=== PATIENT | female | born 1940 | race Caucasian/White ===

== ENCOUNTER → 2017-09-27 | Outpatient (CLI) | payer BC ==
--- NOTE | 2017-09-28 14:59 | BD ---
EXAMINATION TYPE: Axial Bone Density DATE OF EXAM: 09/27/2017 COMPARISON: NONE CLINICAL HISTORY: Height: 5 FT 1 1/2 IN Weight: 120 FRAX RISK QUESTIONS: RISK FACTORS HISTORY OF: Surgery to Spine/Hip(right/left)/Wrist (right/left): ZANDER HIP REPLACEMENT When: 2009 AND 2012 Family History of Osteoporosis: YES Active: YES Postmenopausal woman: AGE 55 Take estrogen and/or progesterone medications: TOOK FOR 10 YEARS STOPPED THEM [age] Lost more than 2 inches in height since high school: YES MEDICATIONS: Thyroid Medications: YES Which medication: SYNTHROID How Long: SINCE 2003 Additional Medications: SYNTHROID,CALCIUM, BABY ASPIRIN Additional History: EXAM MEASUREMENTS: Bone mineral densitometry was performed using the [employer]an[employer] System. Bone mineral density as measured about the Lumbar spine is: ----- L1-L4(G/cm2): 1.356 T Score Values are as follows: ----- L2: 1.8 ----- L3: 1.9 ----- L4: 0.7 ----- L1-L4: 1.5 BASELINE Bone mineral density about the L Wrist (g/cm2): 0.561 T Score values are as follows: -----Dist. R+U: -2.5 -----Prox. R+U: -1.3 -----Radius total: -1.9 BASELINE IMPRESSION: Osteoporosis (T Score less than -2.5). There is increased fracture risk and therapy is usually indicated based on age. Re-Screen 1-2 years. NOTE: T-SCORE=SD OF THE YOUNG ADULT MEAN.
== END | disposition home or self-care (01) ==
LOC: RADBDWWP 14:11
PROVIDERS: ATTEND Internal Medicine
DX: M81.0 Age-related osteoporosis without current pathological fracture (principal)
CPT/HCPCS: 77080

== ENCOUNTER 2024-10-02 18:08 | Emergency (ER) | payer MEDICARE, BC ==
--- NOTE | 2024-10-02 18:44 | ED ---
Upper Extremity HPI - General Chief Complaint: Extremity Injury, Upper Stated Complaint: Pain in L arm Time Seen by Provider: 10/02/24 18:37 Source: patient, family, RN notes reviewed Mode of arrival: ambulatory Limitations: no limitations - History of Present Illness Initial Comments: 84-year-old female presenting to the emergency department with her for concerns of a fall. Patient states that she was walking outside when she excellently tripped over a garden hose falling onto her left knee and left elbow. Patient denies hitting her head or loss of conscious at the time of the fall. Patient has pain primarily located over her lateral elbow and states that she is inability to move the elbow due to pain. Last tetanus vaccination was wi thin the last 5 years. Patient denies blood thinner use. Has been able to ambulate on the left leg and is not endorsing pain to the left knee. - Related Data Allergies Allergy/AdvReac Type Severity Reaction Status Date / Time No Known Allergies Allergy Verified 10/02/24 18:35 Review of Systems ROS Statement: Those systems with pertinent positive or pertinent negative responses have been documented in the HPI. ROS Other: All systems not noted in ROS Statement are negative. Past Medical History Past Medical History: CVA/TIA, Thyroid Disorder Past Surgical History: Joint Replacement, Orthopedic Surgery Past Psychological History: No Psychological Hx Reported Smoking Status: Never smoker Past Alcohol Use History: None Reported Past Drug Use History: None Reported General Exam Limitations: no limitations General appearance: alert, in no apparent distress Respiratory exam: Present: normal lung sounds bilaterally. Absent: respiratory distress, wheezes, rales, rhonchi, stridor Cardiovascular Exam: Present: regular rate, normal rhythm, normal heart sounds. Absent: systolic murmur, diastolic murmur, rubs, gallop, clicks GI/Abdominal exam: Present: soft, normal bowel sounds. Absent: distended, tenderness, guarding, rebound, rigid Left Elbow exam: Present: tenderness, swelling, abrasion, effusion. Absent: normal inspection, full ROM Hand Wrist exam: Present: full ROM. Absent: tenderness, swelling Neuro motor exam: Present: wrist extension intact, thumb opposition intact Left Knee exam: Present: tenderness (laceration to knee) Gait: observed and normal Back exam: Present: normal inspection Course Vital Signs 10/02/24 10/02/24 10/02/24 18:25 20:15 21:15 Temperature 97.8 F 98.3 F 97.8 F Pulse Rate 64 65 78 Respiratory 22 20 18 Rate Blood Pressure 176/84 166/69 157/79 O2 Sat by Pulse 98 97 99 Oximetry Procedures - Orthopedic Splinting/Casting Injury #1 Side: left Upper Extremity Injury Location: long arm Upper Extremity Immobilizer: posterior splint, Juan wrap, synthetic pre-padded splint Medical Decision Making - Medical Decision Making Was pt. sent in by a medical professional or institution (, PA, FLORIST DESIGNER, urgent care, hospital, or shelter...) When possible be specific @ -No Did you speak to anyone other than the patient for history (EMS, parent, family, police, friend...)? What history was obtained from this source @ -No Did you review nursing and triage notes (agree or disagree)? Why? @ -I reviewed and agree with nursing and triage notes Were old charts reviewed (outside hosp., previous admission, EMS record, old EK G, old radiological studies, urgent care reports/EKG's, shelter records)? Report findings @ -No old charts were reviewed Differential Diagnosis (chest pain, altered mental status, abdominal pain women, abdominal pain men, vaginal bleeding, weakness, fever, dyspnea, syncope, headache, dizziness, GI bleed, back pain, seizure, CVA, palpatations, mental health, musculoskeletal)? @ -Differential Musculoskeletal Muscular strain, contusion, ligament sprain, fracture, arthritis, septic arthritis, bursitis, cellulitis, muscle spasm, nerve compression, DVT, arterial occlusion, herpes zoster, electrolyte abnormality, tumor.... This is not meant to be in all inclusive list EKG interpreted by me (3pts min.). @ -None X-rays interpreted by me (1pt min.). @ -X-ray of the left elbow reveals a severely comminuted impacted fracture of the distal humerus and large elbow joint effusion with significant surrounding soft tissue edema CT interpreted by me (1pt min.). @ -CT imaging of the left elbow without contrast reveals a severely comminuted distal humerus fracture involving the olecranon fossa, medial lateral epicondyles with evidence of intra-articular extension with a large elbow joint effusion. U/S interpreted by me (1pt. min.). @ -None done What testing was considered but not performed or refused? (CT, X-rays, U/S, labs)? Why? @ -None What meds were considered but not given or refused? Why? @ -None Did you discuss the management of the patient with other professionals (professionals i.e. , PA, FLORIST DESIGNER, lab, RT, psych nurse, bilingual social worker, coverstitch binder, teacher, aviation safety officer, rifle case repairer)? Give summary @ -Dr. Flowers, OA, recommends transfer. Dr. Wade at [facility], was recommend that a CT of the elbow is ordered and patient be placed in a posterior arm splint and a sling and to follow-up tomorrow in office with himself in the afternoon for further evaluation. P Was smoking cessation discussed for >3mins.? @ -No Was critical care preformed (if so, how long)? @ -No Were there social determinants of health that impacted care today? How? (Homelessness, low income, unemployed, alcoholism, drug addiction, transportation, low edu. Level, literacy, decrease access to med. care, nursing home, rehab)? @ -No Was there de-escalation of care discussed even if they declined (Discuss DNR or withdrawal of care, Hospice)? DNR status @ -No What co-morbidities impacted this encounter? (DM, HTN, Smoking, COPD, CAD, Cancer, CVA, ARF, Chemo, Hep., AIDS, mental health diagnosis, sleep apnea, morbid obesity)? @ -None Was patient admitted / discharged? Hospital course, mention meds given and route, prescriptions, significant lab abnormalities, going to OR and other pertinent info. @ -Discharge. 84-year-old female presented emerged part with complaints of a fall. Patient noted to have a left arm skin avulsion. Patient is unable to move elbow due to pain. She is provided with pain medication. X-ray imaging is concerning for a comminuted fracture of the distal humerus. I spoke with Dr. Flowers, who recommends transfer to orthopedic trauma center for further evaluation. I spoke with Dr. Dr. Shant Wade at [facility], was recommend that a CT of the elbow is ordered and patient be placed in a posterior arm splint and a sling and to follow-up tomorrow in office with himself in the afternoon for further evaluation. Patient is placed in a sling and is instructed to follow-up. She is provided with starter pack of Tylenol 3. Case discussed with Dr. Nelson Undiagnosed new problem with uncertain prognosis? @ -No Drug Therapy requiring intensive monitoring for toxicity (Heparin, Nitro, Insulin, Cardizem)? @ -No Were any procedures done? @ -Orthopedic splinting Diagnosis/symptom? @ -Distal humeral fracture Acute, or Chronic, or Acute on Chronic? @ -Acute Uncomplicated (without systemic symptoms) or Complicated (systemic symptoms)? @ -Uncomplicated Side effects of treatment? @ -No Exacerbation, Progression, or Severe Exacerbation? @ -No Poses a threat to life or bodily function? How? (Chest pain, [place], [place], pneumonia, PE, COPD, DKA, ARF, appy, cholecystitis, CVA, Diverticulitis, Homicidal, Suicidal, threat to staff... and all critical care pts) @ -No Disposition Clinical Impression: Humerus fracture Disposition: HOME SELF-CARE Condition: Stable Instructions (If sedation given, give patient instructions): Elbow Fracture (DC) Additional Instructions: Please return to the Emergency Department if symptoms worsen or any other concerns. Please contact Dr. Shant Wade's office at: first thing in the morning to schedule follow-up appointment. Keep splint and sling in place until follow-up. Is patient prescribed a controlled substance at d/c from ED?: No Referrals: Dirk Kathleen MD [Primary Care Provider] - 1-2 days Time of Disposition: 20:57
--- NOTE | 2024-10-02 19:23 | XR ---
EXAMINATION TYPE: XR elbow complete LT DATE OF EXAM: 10/02/2024 7:11 PM COMPARISON: None CLINICAL INDICATION: Female, 84 years old with history of fall, pain, laceration; PHH, pain TECHNIQUE: XR elbow complete LT; elbow was examined in AP, lateral, and oblique projections. FINDINGS: Osseous structures are demineralized. Comminuted impacted displaced fracture of the distal humerus involving the medial and lateral epicondyles. Large suprapatellar joint effusion and signific ant surrounding soft tissue edema. IMPRESSION: Severely comminuted impacted fracture of the distal humerus and large elbow joint effusion as describ ed above. [facility], , 10/02/2024 7:21 PM
[2024-10-02] MEDS: HYDROmorphone 1 MG/ML 1 ML SYRINGE IM STA (20:10)
[2024-10-02] MEDS: ACET/COD 300 MG/30 MG STARTER PACK 6 TAB BTL PO STA (21:07)
[2024-10-02 21:17] VITALS: BP 157/79; PULSE 78; RESP 18; TEMP 97.8
--- NOTE | 2024-10-02 21:17 | CT ---
EXAMINATION TYPE: CT elbow LT wo con DATE OF EXAM: 10/02/2024 9:00 PM COMPARISON: Same day extremity radiograph. CLINICAL INDICATION: Female, 84 years old with history of fall, pain, fracture; PHH, fall, elbow pain TECHNIQUE: Axial images were obtained of the CT elbow LT wo con, Additional coronal and sagittal refo rmatted images and soft tissue and bone window were obtained for review. 3-D reconstruction was creat ed on a separate workstation. CT DLP: 1150.4 mGycm, Automated exposure control for dose reduction was used. FINDINGS: Severely comminuted displaced fracture of the distal humerus involving the olecranon fossa, medial and lateral epicondyles with evidence of intra-articular extension. There is approximately 2 cm of medial distraction of the medial condyle displaced fracture fragment. Numerous small ossific de nsities within the joint space. Large suprapatellar joint effusion. No definite unexpected opaque for eign body. Visualized portion of the proximal radius and olecranon appear grossly intact without defi nite acute displaced fracture. No definite fracture of the coronoid process of the ulna. IMPRESSION: Severely comminuted distal humerus fracture involving the olecranon fossa, medial and lateral epicond yles with evidence of intra-articular extension as described above. Large elbow joint effusion. [facility], , 10/02/2024 9:14 PM
== END 2024-10-02 21:17 | disposition home or self-care (01) ==
LOC: EC 18:08
DX: S42.402A Unspecified fracture of lower end of left humerus, initial encounter for closed fracture (principal); W01.0XXA Fall on same level from slipping, tripping and stumbling without subsequent striking against object, initial encounter; Y93.01 Activity, walking, marching and hiking
CPT/HCPCS: 73080; 73200; 99284; 96372; 29105; J1171